=== PATIENT | male | born 2005 | race Caucasian/White ===

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

== ENCOUNTER 2025-07-11 12:48 | Outpatient (CLI) | payer OTHER, BC, SELFPAY ==
--- NOTE | 2025-07-11 | CA_ITS ---
APPROVED REPORT EXAM: Comprehensive 2D, Doppler, and color-flow Echocardiogram Military Technology Manager: Ivory Xie RT(R) Ht: 6 ft 0 in Wt: 195lbs BSA: 2.11 BP: 138/85 mmHg Indications: hx of bicuspid AV, CARTER, asthma, murmur 2D Dimensions LVEF (Haney's) 41.00 % M: 52 - 72 LV Volume 108.60 mL M: 62 - 150 LV Volume Index 51.5 mL/m2 M: 34 - 74 EF AP4 40.00 % EF AP2 42.1 % EF BP 41.0 % GL Strain -12.6 % M-Mode Dimensions RVDd 2.11 cm (0.9-2.6) LA Diam 1.47 cm (1.9-4.0) LVDd 5.04 cm (3.5-5.7) LVDs 3.43 cm (3.5-5.7) IVSd 0.75 cm (0.6-1.1) PWd 1.00 cm (0.6-1.1) EF (Teich) 59.80% FS 31.90% EDV (Teich) 120.50 mL ESV (Teich) 48.50 mL LV Diastology E Decel Time 150 (160-240 msec) E/A Ratio 1.2 Aortic Valve RICARDO Index 1.17 cm2/m2 AoV Peak Alan. 130.0 (50-130 cm/s) AO Peak GR. 6.80 mmHg AO Mean GR. 3.30 (<5 mmHg) AO VTI 25.3 (18-25 cm) RICARDO (VTI) 2.52 (2.5-4.5 cm2) Mitral Valve MV E Max Alan. 76.0 (40-130 cm/s) MV A Velocity 61.0 (40-130 cm/s) E/A Ratio 1.24 MV PHT 44.0 ms Left Ventricle The left ventricle is normal size. Left ventricular systolic function is low-normal. There is normal left ventricular wall thickness. There is normal LV segmental wall motion. The left ventricular diastolic function is normal. LVEF is 50% Right Ventricle The right ventricle is normal size. The right ventricular systolic function is normal. Atria The left atrium size is normal. The right atrium size is normal. There is no color Doppler evidence of interatrial shunt. Aortic Valve Reported history of bicuspid AV. The number of leaflets cannot be determinate on this TTE. The aortic valve opens well. There is no hemodynamically significant aortic valvular stenosis. No aortic regurgitation is present. Mitral Valve The mitral valve is normal in structure. No evidence of mitral valve stenosis. Trace mitral regurgitation is present. Tricuspid Valve The tricuspid valve leaflets are thin and pliable. Trace tricuspid regurgitation. There is insufficient TR jet to estimate RVSP. Pulmonic Valve The pulmonary valve is grossly normal in structure. Trace pulmonic valve regurgitation is present. Great Vessels The aortic root is normal in size. IVC is normal in size and collapses >50% with inspiration. Pericardium There is no pericardial effusion. Other Information Study Quality: Fair Conclusion Normal biventricular systolic function (LVEF 50%). Reported history of bicuspid AV. The number of leaflets cannot be determinate on this TTE. Notably, however, the aortic valve opens well. No significant valvular stenosis or regurgitation. Electronically signed by : Nemo Mayorga MD 07/11/2025 22:10:49
--- OUTSIDE RECORDS SUMMARY | 2025-07-11 12:53 | XMS_ITS | Encounter Summary ---
Author Organization Healthcare Address [address] [place] [address] Care Team Providers Care Mmi Teacher Name Role Phone Kip Ovalle MD Primary Care Provider + [phone] Encounter Details Date Type Department Care Team (Late st Contact Info) Description 03/20/2023 Orders Only External Location [address] [place] [address] Kip Ovalle MD [address] [place] [address] Social History Tobacco Use Types Packs/Day Years Used Date Smoking Tobacco: Never Smokeless Tobacco: Never Education Answer Date Recorded What is the highest level of school you have completed or the highest degree you have received? 9th grade 05/18/2021 Sex and Gender Information Value Date Recorded Sex Assigned at Not on file Legal Sex Male 8:51 PM EDT Gender Identity Not on file Sexual Orientation Not on file documented as of this encounter Plan of Treatment Not on file documented as of this encounter Procedures Procedure Name Priority Date/Time Associated Diagnosis Comments MR OUTSIDE IMAGES 03/20/2023 3:14 PM EDT documented in this encounter Results * MR transfer of outside films (03/20/2023 3:14 PM EDT) Anatomical Region Laterality Modality Magnetic Resonan ce 03/20/2023 3:14 PM EDT Kip Ovalle MD IMG MRI PROCEDURES Final Res ult documented in this encounter Visit Diagnoses Not on filedocumented in this encounter Care Teams Mmi Teacher Relationship Specialty Start Date End Date Kip Ovalle MD [address] [place] [address] PCP - General 12/22/20 documented as of this encounter
--- OUTSIDE RECORDS SUMMARY | 2025-07-11 12:53 | XMS_ITS | Clinical Summary ---
Author Organization Healthcare Address [address] [place] [address] Care Team Providers Care Precision Assembler Name Role Phone Kip Ovalle MD Primary Care Provider + [phone] Allergies Active Allergy Reactions Criticality Noted Date Comments Egg-Derived Products Unknown - Patient s tates they do not know rxn details Low 10/08/2019 Tree Nuts Unknown - Patient st ates they do not know rxn details Low 10/08/2019 Medications norelgestromin-e thinyl estradiol (Ortho-Evra) 150-35 MCG/24HR Place 1 patch on the skin 1 (one) time per week. Apply 1 patch each week for 3 weeks, then remove for 1 week. Active Active Problems Problem Noted Date Diagnosed Date Bicuspid aortic valve 05/21/2021 Resolved Problems Problem Noted Date Diagnosed Date Resolved Date Ankle pain, left 10/16/2020 05/21/2021 Elbow pain 09/06/2020 05/21/2021 Family History Medical History Relation Name Comments No Known Problems Brother Sleep apnea Father No Known Problems Mother Bicuspid aortic valve Sister Relation Name Status Comments Brother Father Mother Sister Social History Tobacco Use Types Packs/Day Years [...] on file Sexual Orientation Not on file Last Filed Vital Signs Vital Sign Reading Time Taken Comments Blood Pressure 111/71 05/20/2023 3:45 PM EDT Pulse 67 05/18/2021 9:54 AM EDT Temperature - - Respiratory Rate 12 05/18/2021 9:54 AM EDT Oxygen Saturation - - Inhaled Oxygen Concentration - - Weight 77.1 kg (170 lb) 05/20/2023 3:45 PM EDT Height 180.3 cm (5' 11 ) 05/20/2023 3:45 PM EDT Body Mass Index 23.71 05/20/2023 3:45 PM EDT Plan of Treatment Health Maintenance Due Date Last Done Comments [facility]-Depression Screening 2005 [facility]-HIV Screening 2005 [facility]-Hepatitis C Screening 2005 [facility]-Infant/Child/Adol SDOH Screenings 2005 [facility]-Varicella Vaccines (1 of 2 - 13+ 2-dose series) 2018 [facility]- SDOH Screenings 2023 [facility]-Adult SDOH Screenings 2023 [facility]-Hepatitis B Vaccines (1 of 3 - 19+ 3-dose series) 2024 [facility]-ACEAH-32 Vaccine (3 - 2024- season) 2025 04/27/2021, 04/01/2021 [facility]-Influenza Vaccine (#1) 04/11/202506/29, 06/22/2020, 06/21/2019, Additional history exists [facility]-DTaP,Tdap,and Td Vaccines (2 - Td or Tdap) 02/26/2027 02/26/2017 [facility]-Zoster Vaccines (1 of 2) 2055 HPV Vaccines Completed 03/11/2018, 02/26/2017 [facility]-HIB Vaccines Aged Out No longer e ligible based on patient's age to complete this topic [facility]-Hepatitis A Vaccines Aged Out No longer eligible based on patient's age to complete this topic [facility]-IPV Vaccines Aged Out No longer e ligible based on patient's age to complete this topic [facility]-Pneumococcal Vaccine: Pediatrics (0 to 5 Years) and At-Risk Patients (6 to 49 Years) Aged Out No longer eligible based on patient's age to complete this topic [facility]-Rotavirus Vaccines Aged Out No lo nger eligible based on patient's age to complete this topic Insurance [facility] Care Teams Precision Assembler Relationship Specialty Start Date End Date Kip Ovalle MD [address] [place] [id number] PCP - General 12/22/20
== END 2025-07-11 23:59 | disposition home or self-care (01) ==
LOC: RT 12:48
PROVIDERS: PCP Internal Medicine Adolescent Medicine; Visit Provider Internal Medicine Adolescent Medicine
DX: Q23.1 Congenital insufficiency of aortic valve (principal); J45.909 Unspecified asthma, uncomplicated
CPT/HCPCS: 93306